=== PATIENT | male | born 1970 | race Caucasian/White ===

== ENCOUNTER 2022-06-19 14:18 | Emergency (ER) | payer MEDICAID ==
[~2022-06-19] VITALS: Ht 162.6 cm; Wt 68.0 kg
[2022-06-19] MEDS ORDERED: ASPirin 81 mg TAB PO ONE (15:15)
[2022-06-19 15:38] LABS: Basophils # (auto) 0 10 ^3/uL (0-0.2); Basophils % (auto) 0.7 % (0.0-2.0); Eosinophils # (auto) 0.1 10 ^3/uL (0-0.8); Hematocrit 51.4 % (41.0-53.0); Hemoglobin 17.3 g/dL (13.5-17.5); Lymphocytes # (auto) 1.2 10 ^3/uL (0.4-5.4); Lymphocytes % (auto) 22.3 % (10.0-50.0); Mean Corpuscular Hemoglobin 33.1 pg (28.0-32.0); Mean Corpuscular Hgb Conc. 33.6 g/dL (32.0-36.0); Mean Corpuscular Volume 98.4 fL (80.0-100.0); Monocytes # (auto) 0.4 10 ^3/uL (0-1.3); Monocytes % (auto) 8.1 % (0.0-12.0); Neutrophils # (auto) 3.6 10 ^3/uL (1.6-8.6); Neutrophils % (auto) 67.9 % (37.0-80.0); Nucleated Red Blood Cells % 0.1 %; Red Blood Cells 5.22 10^6/uL (4.5-5.90); Red Cell Distribution Width 14.4 % (11.8-14.3); White Blood Cell 5.4 10^3/uL (4.4-10.8)
[2022-06-19 16:08] LABS: Albumin 3.9 g/dL (3.4-5.0); Calcium 9.1 mg/dL (8.5-10.1); Potassium 3.9 mmol/L (3.5-5.1)
[2022-06-19 16:16] LABS: BUN/Creatinine Ratio 9.7; Bilirubin, Total 2.7 mg/dL (0.2-1.0); Total Protein 7.5 g/dL (6.4-8.2)
[2022-06-19 19:58] VITALS: BP 135/88
== END 2022-06-19 19:58 | disposition home or self-care (01) ==
LOC: ER 14:18
DX: R07.89 Other chest pain (principal)
CPT/HCPCS: 36415; 71046; 80053; 84484; 85025; 85379; 93005

== ENCOUNTER 2023-03-20 20:41 | Emergency (ER) | payer MEDICAID ==
[~2023-03-20] VITALS: Ht 167.6 cm; Wt 69.8 kg
[2023-03-20] MEDS ORDERED: ALLO100T PO (22:23)
[2023-03-20] MEDS ORDERED: HYDR-4902 PO (22:23)
[2023-03-20] MEDS ORDERED: HYDROcodone-ACET 5/325MG TAB PO ONE (22:30)
[2023-03-20] MEDS ORDERED: DexAMETHasone SOD PHOS 10MG/1ML VIAL INJ IM ONE (22:30)
[2023-03-20] MEDS ORDERED: KETOROLAC TROMETH 60MG/2ML VIAL IM ONE (22:30)
[2023-03-21 00:18] VITALS: BP 138/84; PULSE 91; RESP 17; TEMP 99.8; O2SAT 97
== END 2023-03-21 00:32 | disposition home or self-care (01) ==
LOC: ER 20:41
DX: M25.421 Effusion, right elbow (principal); M25.521 Pain in right elbow; M10.9 Gout, unspecified; Z76.0 Encounter for issue of repeat prescription; Z79.899 Other long term (current) drug therapy
CPT/HCPCS: 36415; 73080; 84550; 96372; 99284; J1100; J1885